=== PATIENT | female | born 1970 | race Caucasian/White ===

== ENCOUNTER 2018-10-17 09:55 | Emergency (ER) | payer OTHER ==
[~2018-10-17] VITALS: Ht 154.9 cm; Wt 89.0 kg
[~2018-10-17 09:55] MED LIST: NAPR-985 PO
[2018-10-17 10:00] VITALS: Ht 154.9 cm; Wt 89.0 kg
[2018-10-17] MEDS ORDERED: IBUPROFEN 800 MG TAB PO ONE (10:30)
[2018-10-17 11:50] VITALS: BP 150/68; PULSE 57; RESP 17
--- NOTE | 2018-10-17 14:19 | ERD ---
ER Documentation Chief Complaint Chief Complaint LOW BACK PAIN RADIATING TO COCCYX AREA X3 MONTHS HPI 48-year-old female presenting with lower back pain and lower pelvic pain. She states that the pelvic pain seems to radiate through the groin to her rectum. She denies any swelling or pain. No change in urination or bowel movement and denies any pain around the buttocks. Denies other medical problems. NKDA. Surgical history denies. Social history denies ROS All systems reviewed and are negative except as per history of present illness. Medications Home Meds Active Scripts Naproxen* (Naprosyn*) 500 Mg Tablet, 500 MG PO BID PRN for PAIN AND/OR INFLAMMATION, #30 TAB Prov:MALICK HOROWITZ PA-C 10/17/18 Allergies Allergies: Coded Allergies: No Known Allergy (Unverified , 10/17/18) PMhx/Soc Medical and Surgical Hx: pt denies Surgical Hx Hx Cardiac Disorders: Yes (HTN) Hx Alcohol Use: No Hx Substance Use: No Hx Tobacco Use: No Smoking Status: Never smoker FmHx Family History: No diabetes, No coronary disease, No other Physical Exam Vitals Vital Signs Date Temp Pulse Resp B/P (MAP) Pulse Ox O2 O2 Flow FiO2 Time Delivery Rate 10/17/18 98.1 57 17 150/68 99 Room Air 11:50 (95) 10/17/18 97.9 61 17 139/74 98 10:00 (95) Physical Exam GENERAL: The patient is well-appearing, well-nourished, in no acute distress HEENT: Atraumatic. Conjunctivae are pink. Pupils equal, round, and reactive to light. There is no scleral icterus. Tympanic membranes clear bilaterally. Oropharynx clear. CHEST: Clear to auscultation bilaterally. There are no rales, wheezes or rhonchi. HEART: Regular rate and rhythm. No murmurs, clicks, rubs or gallops. ABDOMEN:Soft, nontender and nondistended. Good bowel sounds. No rebound or guarding. No gross peritonitis. No gross organomegaly or masses. BACK: No midline or flank tenderness. RECTUM: Erythema or swelling noted around the rectum. No tenderness Result Diagram: 10/17/18 1028 10/17/18 1028 Results 24 hrs Laboratory Tests Test 10/17/18 10:28 10/17/18 10:35 White Blood Count 5.1 10^3/ul Red Blood Count 4.08 10^6/ul Hemoglobin 11.5 g/dl Hematocrit 35.9 % Mean Corpuscular Volume 88.0 fl Mean Corpuscular Hemoglobin 28.2 pg Mean Corpuscular Hemoglobin Concent 32.0 g/dl Red Cell Distribution Width 15.3 % Platelet Count 316 10^3/UL Mean Platelet Volume 9.5 fl Immature Granulocytes % 0.200 % Neutrophils % 40.7 % Lymphocytes % 50.3 % Monocytes % 7.2 % Eosinophils % 1.2 % Basophils % 0.4 % Nucleated Red Blood Cells % 0.0 /100WBC Immature Granulocytes # 0.010 10^3/ul Neutrophils # 2.1 10^3/ul Lymphocytes # 2.6 10^3/ul Monocytes # 0.4 10^3/ul Eosinophils # 0.1 10^3/ul Basophils # 0.0 10^3/ul Nucleated Red Blood Cells # 0.0 10^3/ul Urine Color YELLOW Urine Clarity CLEAR Urine pH 5.0 Urine Specific [place] 1.014 Urine Ketones NEGATIVE mg/dL Urine Nitrite NEGATIVE mg/dL Urine Bilirubin NEGATIVE mg/dL Urine Urobilinogen NEGATIVE mg/dL Urine Leukocyte Esterase NEGATIVE Debra/ul Urine Hemoglobin NEGATIVE mg/dL Urine Glucose NEGATIVE mg/dL Urine Total Protein NEGATIVE mg/dl Sodium Level 138 mmol/L Potassium Level 4.3 mmol/L Chloride Level 102 mmol/L Carbon Dioxide Level 27 mmol/L Anion Gap 9 Blood Urea Nitrogen 16 mg/dl Creatinine 0.53 mg/dl Est Glomerular Filtrat Rate mL/min > 60 mL/min Glucose Level 98 mg/dl Calcium Level 9.1 mg/dl Total Bilirubin 0.3 mg/dl Direct Bilirubin 0.00 mg/dl Indirect Bilirubin 0.3 mg/dl Aspartate Amino Transf (AST/SGOT) 33 IU/L Alanine Aminotransferase (ALT/SGPT) 33 IU/L Alkaline Phosphatase 101 IU/L Total Protein 8.1 g/dl Albumin 4.2 g/dl Globulin 3.90 g/dl Albumin/Globulin Ratio 1.07 Lipase 121 U/L POC Beta HCG, Qualitative NEGATIVE Current Medications Medications Dose Sig/Dilip Start Time Status Last (Trade) Ordered Route PRN Stop Time Admin Dose Reason Admin Ibuprofen 800 mg ONCE ONCE 10/17/18 DC 8/13/19 (Motrin) PO 10:30 10:26 10/17/18 10:31 Procedures/[facility] REPORT Patient: ELLA ISAAC : 1970 Age: 48 Sex: F MR #: [id number] DOS: 10/17/18 1015 Ordering MD: ERICKA HOROWITZ PA-C Location: [facility] Room/Bed: PROCEDURE: US Pelvis Non-OB with endovaginal scanning and Doppler CLINICAL INDICATION: Abdominal pain TECHNIQUE: Images were taken during real time trans pelvic and endovaginal interrogation. Color-flow and Doppler interrogation of the ovaries was performed. COMPARISON: None FINDINGS: Uterus: The uterus is anteverted and slightly prominent in size measuring 9.1 cm in sagittal diameter and 5.3 x 5.3 cm in cross diameter. The endometrial stripe measures 1.5 cm. Nabothian cysts up to 4 mm in maximal diameter are seen within the cervix. Ovaries: The right ovary measures 2.8 x 1.9 x 1.6 cm and and contains 2 cysts with the largest measuring 2.1 cm in maximal diameter. Vascular flow is demonstrated in the right ovary on Doppler. The left ovary is not identified. Adnexa: No adnexal mass is identified. Free intraperitoneal fluid: None visualized. IMPRESSION: 1. Anteverted slightly prominent uterus with the endometrial stripe thickened to 1.5 cm. Nabothian cysts are seen in the cervix. 2. The right ovary contains 2 cysts the largest of which measures 2.1 cm in maximal diameter. Vascular flow is demonstrated in the right ovary on Doppler. The left ovary is not visualized. 3. No adnexal mass or free fluid is evident. MDM: 48-year-old female presenting with back pain and pelvic pain. Patient has a cyst noted on ultrasound which may be radiating to her back and causing some pain. I have low suspicion for acute abdominal emergency. I have low suspicion for pelvic abnormality. I do not feel that further imaging was indicated. Patient is discharged with strict ER precautions and told to follow-up with primary care within 1 to 2 days for close evaluation. Patient is discharged with supportive medications. All questions answered at discharge Departure Diagnosis: Primary Impression: Ovarian cyst Condition: Stable Patient Instructions: Ovarian Cyst Referrals: [facility] YOU HAVE RECEIVED A MEDICAL SCREENING EXAM AND THE RESULTS INDICATE THAT YOU DO NOT HAVE A CONDITION THAT REQUIRES URGENT TREATMENT IN THE EMERGENCY DEPARTMENT. FURTHER EVALUATION AND TREATMENT OF YOUR CONDITION CAN WAIT UNTIL YOU ARE SEEN IN YOUR DOCTORS OFFICE WITHIN THE NEXT 1-2 DAYS. IT IS YOUR RESPONSIBILITY TO MAKE AN APPOINTMENT FOR FOLOW-UP CARE. IF YOU HAVE A PRIMARY DOCTOR --you should call your primary doctor and schedule an appointment IF YOU DO NOT HAVE A PRIMARY DOCTOR YOU CAN CALL OUR PHYSICIAN REFERRAL HOTLINE AT IF YOU CAN NOT AFFORD TO SEE A PHYSICIAN YOU CAN CHOSE FROM THE FOLLOWING [facility] [address] [facility] [address] [facility] [facility] [address] [facility] [address] [facility] [address] [facility] [facility]. [address] Additional Instructions: FOLLOW UP WITH YOUR PRIMARY CARE PHYSICIAN TOMORROW.Return to this facility if you are not improving as expected. MALICK HOROWITZ PA-C Oct 17, 2018 14:19
== END 2018-10-17 11:50 | disposition home or self-care (01) ==
LOC: FTE 09:55
DX: N83.201 Unspecified ovarian cyst, right side (principal); I10 Essential (primary) hypertension
CPT/HCPCS: 36415; 76830; 76856; 80053; 81003; 81025; 83690; 85025; Z7502; Z7610